=== PATIENT | male | born 1965 | race Caucasian/White ===

== ENCOUNTER 2017-06-18 07:16 | Day surgery (SDC) | payer BC ==
[2017-06-17 11:50] VITALS: BMI 39.1
[2017-06-18] MEDS ORDERED: Oxymetazoline HCl 0.05% ( 15 ML ) ONE ×2 (08:49→09:23)
[2017-06-18] MEDS ORDERED: Lidocaine 1% w/Epinephrine 1:200K 30 ML VIAL ONE (09:23)
[2017-06-18] MEDS ORDERED: Bacitracin Zinc Ointment 30 gm TUBE ONE (09:23)
[2017-06-18] MEDS ORDERED: Fentanyl 100 MCG/2 ML VIAL ONE ×2 (09:24→10:57)
[2017-06-18] MEDS ORDERED: Midazolam HCl 2 mg/2 ml Vial ONE (09:24)
[2017-06-18] MEDS ORDERED: Ondansetron HCl/PF 4 MG/2 ML Vial ONE ×2 (09:24→13:15)
[2017-06-18] MEDS ORDERED: Ferric Subsulfate 8 ML BOT ONE (09:53)
[2017-06-18] MEDS ORDERED: HYDROmorphone 0.5 MG/0.5 ML SYRINGE ONE ×2 (10:50→10:58)
--- NOTE | 2017-06-18 11:38 | EKG ---
Test Reason : PREOP Blood Pressure : / mmHG Vent. Rate : 075 BPM Atrial Rate : 075 BPM P-R Int : 146 ms QRS Dur : 088 ms QT Int : 408 ms P-R-T Axes : 019 051 027 degrees QTc Int : 455 ms Normal sinus rhythm Normal ECG No previous ECGs available Confirmed by DR. Mickey SOLARES ([id number]) on 06/18/2017 11:38:25 AM Referred By: LING Confirmed By:DR. Mickey SOLARES
[2017-06-18] MEDS ORDERED: Hydrocodone-Acetamin 15 ML UDCUP ONE ×2 (12:20→14:16)
[2017-06-18] MEDS ORDERED: Dexamethasone 20 MG/5 ML VIAL ONE (13:15)
[2017-06-18] MEDS ORDERED: ePHEDrine/0.9% NaCl/PF SYRINGE 50 mg/10 ml ONE (13:15)
[2017-06-18] MEDS ORDERED: Lidocaine 1% PF 5 ML VIAL ONE (13:15)
[2017-06-18] MEDS ORDERED: PHENYLEPHRINE-NS 100 MCG/ML 10 ML SYRINGE ONE (13:15)
[2017-06-18] MEDS ORDERED: Succinylcholine Chloride 20 MG/ML 10 ml SYRINGE FS ONE (13:15)
[2017-06-18] MEDS ORDERED: PROPOFOL 200 MG/20 ML VIAL ONE (13:15)
--- NOTE | 2017-06-19 01:20 | OP ---
DATE OF PROCEDURE: 06/18/2017 PREOPERATIVE DIAGNOSES: 1. Chronic rhinosinusitis. 2. Nasal septal deviation. 3. Bilateral inferior turbinate hypertrophy. 4. Nasal obstruction. 5. Obstructive sleep apnea. 6. Chronic adenotonsillitis. 7. Adenotonsillar hypertrophy. 8. Uvula hypertrophy. POSTOPERATIVE DIAGNOSES: 1. Chronic rhinosinusitis. 2. Nasal septal deviation. 3. Bilateral inferior turbinate hypertrophy. 4. Nasal obstruction. 5. Obstructive sleep apnea. 6. Chronic adenotonsillitis. 7. Adenotonsillar hypertrophy. 8. Uvula hypertrophy. PROCEDURES: 1. Bilateral endoscopic sinus surgery, total ethmoidectomies. 2. Bilateral endoscopic sinus surgery, maxillary antrostomies. 3. Bilateral endoscopic sinus surgery, frontal sinusotomies. 4. Bilateral endoscopic sinus surgery, sphenoidotomies. 5. Nasal septoplasty. 6. Bilateral inferior turbinate, submucosal resection of inferior turbinates. 7. Tonsillectomy and adenoidectomy. 8. Uvulectomy. SURGEON: Felipe Clayton M.D. ESTIMATED BLOOD LOSS: Less than 50 mL. COMPLICATIONS: None. ANESTHESIA: GETA. PROCEDURE IN DETAIL: Patient was taken to the operating room and placed supine on the table. General endotracheal anesthesia was obtained by the Anesthesia staff. Tube was secured in the left lower li p. Patient was then placed in the beach chair position, and Afrin pledgets were placed in the nasal cavity. Injections of 1% lidocaine with 1:100,000 epinephrine were made into the nasal septum as wel l as the inferior turbinates. Patient was then prepped and draped in standard surgical fashion for n leslie surgery. Following this, the Afrin pledgets were removed. A Elmer incision was made on the l eft nasal septum. Submucoperichondrial dissection was performed. The deviated portions of the septu m included portions of the cartilage and the bony septum. These isolated areas were removed using th ree cutting rongeurs. There was noted to be a large dorsal and caudal strut, left intact for support of the nose. The mucoperichondrial flaps were then reapproximated using a 4-0 gut stitch. Any stra ight pieces of cartilage were crushed prior to this and placed between the mucoperichondrial flaps. Following this, the inferior turbinates were then punctured with a submucosal coblation wand, and sub mucosal coblations were performed of multiple areas of the inferior portion of the anterior inferior turbinate. Please note that the submucosal microdebrider was used to submucosally resect the anterior and inferi or portions of the inferior turbinates bilaterally. Following this, the inferior turbinates were gen tly outfractured. Following this, a 0-degree scope was advanced in the nasal cavity, middle turbinat es were then gently medialized using a Ramsay elevator. Ball-ended probe was then used to anteriorly fracture the uncinate process bilaterally. The 0-degree microdebrider was used to remove the uncinat e process as well as identify the maxillary sinus ostia bilaterally. Following this, the maxillary s inus ostia was widened using the straight microdebrider and straight Blakesley forceps following adithya rincon. Following this, the ethmoidal bulla was identified and was punctured on its medial and infe rior aspect and was removed using the microdebrider. Following this, the grand lamella was identifie d bilaterally and was punctured into the posterior ethmoidal cells. Working from posterior to anteri or, the ethmoidal cells were opened in a mucosal-sparing technique. Following this, working through the previous ethmoidectomies, the sphenoid sinus ostia was identified bilaterally and was gently wide evelia medially and inferiorly. Thick secretions and polyps were noted in the right sphenoid sinus. Fo llowing this, a 45-degree scope and the 40-degree microdebrider blade were then used to further open the frontal recess cells and frontal sinus ostia bilaterally. Following this, the nasal cavity was i rrigated. MeroPacks were placed within the middle meatus. Michael splints were placed and secured. F ollowing this, a Vlad-Carlos mouth gag was then introduced into the oral cavity and was retracted. A red Robinul was placed in the nasal cavity and was retracted through the oral cavity to provide elev ation of the soft palate superiorly. The tonsils were then identified and were grasped using a curve d Allis clamp and a Bovie electrocautery was used to perform a subcapsular tonsillectomy bilaterally. Following this, the excessive portions of the uvula and soft palate were measured for adequate jeny th to contact the posterior pharyngeal wall and the excess portions of the tissues were then trimmed using the Bovie electrocautery. Mucosal edges of the soft palate were then reapproximated using a 3- 0 chromic gut stitch. Patient tolerated the procedure well.
== END 2017-06-18 14:55 | disposition home or self-care (01) ==
LOC: SDC 07:16
PROVIDERS: ATTEND Otolaryngology Plastic Surgery within the Head & Neck
PROC: 099W8ZZ Drainage of Right Sphenoid Sinus, Via Natural or Artificial Opening Endoscopic (ICD-10-PCS; principal; 2017-06-18)
PROC: 099X8ZZ Drainage of Left Sphenoid Sinus, Via Natural or Artificial Opening Endoscopic (ICD-10-PCS; principal; 2017-06-18)
PROC: 0CBNXZZ Excision of Uvula, External Approach (ICD-10-PCS; principal; 2017-06-18)
PROC: 099R8ZZ Drainage of Left Maxillary Sinus, Via Natural or Artificial Opening Endoscopic (ICD-10-PCS; principal; 2017-06-18)
PROC: 0CTPXZZ Resection of Tonsils, External Approach (ICD-10-PCS; principal; 2017-06-18)
PROC: 099T8ZZ Drainage of Left Frontal Sinus, Via Natural or Artificial Opening Endoscopic (ICD-10-PCS; principal; 2017-06-18)
PROC: 099Q8ZZ Drainage of Right Maxillary Sinus, Via Natural or Artificial Opening Endoscopic (ICD-10-PCS; principal; 2017-06-18)
PROC: 099S8ZZ Drainage of Right Frontal Sinus, Via Natural or Artificial Opening Endoscopic (ICD-10-PCS; principal; 2017-06-18)
PROC: 09TL8ZZ Resection of Nasal Turbinate, Via Natural or Artificial Opening Endoscopic (ICD-10-PCS; principal; 2017-06-18)
DX: J32.9 Chronic sinusitis, unspecified (principal); J34.2 Deviated nasal septum; J34.3 Hypertrophy of nasal turbinates; G47.33 Obstructive sleep apnea (adult) (pediatric); J35.03 Chronic tonsillitis and adenoiditis; K13.79 Other lesions of oral mucosa; E78.5 Hyperlipidemia, unspecified; E11.42 Type 2 diabetes mellitus with diabetic polyneuropathy; F17.210 Nicotine dependence, cigarettes, uncomplicated; Z79.84 Long term (current) use of oral hypoglycemic drugs; Z79.899 Other long term (current) drug therapy; Z99.89 Dependence on other enabling machines and devices
CPT/HCPCS: 88304; 93005; 93010; 96374; 96375; J1100; J1170; J2001; J2250; J2405; J2704; J3010

== ENCOUNTER 2020-12-11 18:00 | Outpatient (CLI) | payer BC | END 2020-12-11 18:01 | disposition home or self-care (01) | LOC: SLEEPLAB 18:00 | PROVIDERS: ATTEND Otolaryngology Plastic Surgery within the Head & Neck | DX: G47.33 Obstructive sleep apnea (adult) (pediatric) (principal); R53.83 Other fatigue; R09.89 Other specified symptoms and signs involving the circulatory and respiratory systems; R51.9 Headache, unspecified; R06.83 Snoring; G47.00 Insomnia, unspecified; E66.9 Obesity, unspecified; Z68.39 Body mass index [BMI] 39.0-39.9, adult | CPT/HCPCS: 95806 ==